=== PATIENT | female | born 1975 | race Caucasian/White ===

== ENCOUNTER → 2018-05-24 14:30 | Outpatient (CLI) | payer MEDICARE, MEDICAID, SELFPAY ==
--- NOTE | 2018-05-24 | DI.CT.S_ITS ---
PROCEDURE: CT CHEST WO CON INDICATIONS: FOLLOW UP NODULE TECHNIQUE: Noncontrast 2.0-2.5 mm thick sections acquired from the pulmonary apices to the posterior costophrenic angles. 7 mm thick coronal and sagittal MIP reformats were then acquired. A low radiation dose technique was utilized. COMPARISON: Merged With [facility], CT, PE STUDY (CTA CHEST), 12/21/2016, 23:42. FINDINGS: Image quality: Diagnostic, given the low radiation dose technique. Lungs and pleura: Nodularity in the left upper lobe on prior study has completely resolved. Round glass opacity in the left lower lobe has also resolved. Remaining are curvilinear radiodensities at the lung bases compatible with atelectasis/scarring. No pneumothorax or pleural effusion. Central airways are patent. Mediastinum: Heart size is normal. No pericardial effusion. No mediastinal adenopathy by size criteria. Thoracic aorta and central pulmonary arteries are normal in size. Esophagus is normal in caliber. No hiatal hernia. Bones and chest wall: No suspicious bony lesions. No vertebral body compression fractures. No axillary or supraclavicular adenopathy by size criteria. Thyroid gland appears normal as seen. Abdomen: Visualized upper abdomen solid organs and bowel loops appear normal in the absence of contrast. Cholecystectomy IMPRESSION: 1. Interval resolution of inflammatory nodularity left upper lobe. No further followup required. 2. Mild bibasilar pleural-parenchymal scarring/atelectasis. 3. Small calcified mediastinal lymph node indicating prior granulomatous disease. Dictated by: Dario Fisher M.D. on 05/24/2018 at 15:06 Approved by: Dario Fisher M.D. on 05/24/2018 at 15:22
== END ==
PROVIDERS: PCP Family Medicine; Visit Provider Physician Assistant
DX: R91.1 Solitary pulmonary nodule (principal); J98.11 Atelectasis
CPT/HCPCS: 71250

== ENCOUNTER 2021-01-16 15:34 | Emergency (ER) | payer MEDICARE, MEDICAID, SELFPAY ==
[2021-01-16] VITALS (9 sets, daily range): BP systolic 120–169; BP diastolic 81–110; PULSE 102–117; RESP 16–21; TEMP 36.6–36.8; O2SAT 92–96; BMI 65.2
--- NOTE | 2021-01-16 16:35 | DI.US.S_ITS ---
PROCEDURE: US EXTREMELY NONVASC UPPER RT INDICATIONS: pts picc line flushed earlier,now having extreme right arm p TECHNIQUE: Real-time scanning was performed of the right shoulder , with image documentation. COMPARISON: None. FINDINGS: No superficial or intramuscular fluid collections in the area of pain in the right upper arm. IMPRESSION: No abnormal fluid collections visible. Dictated by: Jenny Calle M.D. on 01/16/2021 at 17:00 Approved by: Jenny Calle M.D. on 01/16/2021 at 17:01
[2021-01-16] MEDS: OXYCODONE IR 5 MG TABLET 15 MG PO (17:12)
--- NOTE | 2021-01-16 19:09 | ED_ITS ---
HPI - Extremity Problem General Chief complaint: Extremity Problem,Nontraumatic Stated complaint: cleaned port, now pain up arm and neck Time Seen by Provider: 01/16/21 16:42 Source: patient Mode of arrival: Wheelchair History of Present Illness HPI Narrative: 45-year-old woman comes in with severe upper extremity pain related to her PICC line. She recently had his abdominal hernia repair that became infected with MRSA and now is on at least 7 more days of b.i.d. MRSA. Surgeries done at the [facility]. This morning noted the PICC line was not flushing well. It was infused and allowed to sit for 2 hours until it was working well and then the vancomycin was administered. Within an hour of completing the vancomycin she had increasing pain in the upper extremity that has continued to get worse. She is having difficulty extending her arm abducting her arm and severe pain that is not able to be controlled with pain medication she has available to her currently. Related Data Home Medications Medication Instructions Recorded Confirmed aripiprazole [Abilify] 20 mg PO QDAY #0 12/19/16 insulin aspart U-100 [Novolog 6 unit SQ TIDCC #0 12/19/16 U-100 Insulin aspart] insulin glargine [Lantus U-100 120 unit SQ HS #0 12/19/16 Insulin] lamotrigine [Lamictal] 200 mg PO QDAY #0 12/19/16 losartan [Cozaar] 25 mg PO QDAY #0 12/19/16 metformin [Glucophage] 1,000 mg PO BID #0 12/19/16 metoclopramide HCl 10 mg PO BID #0 12/19/16 tramadol 50 mg PO QIDP PRN #0 12/19/16 multivitamin [Multiple Vitamins] 1 tab PO QDAY #0 02/14/17 ascorbic acid (vitamin C) 500 mg PO QDAY #0 03/22/17 ferrous sulfate [Iron (ferrous 325 mg PO QDAY #0 03/22/17 sulfate)] furosemide 40 mg PO QDAY #0 03/22/17 gabapentin 2 cap PO BID #0 03/22/17 rivaroxaban [Xarelto] 20 mg PO HS #0 03/22/17 clotrimazole 1 gm TOPICAL BID #0 06/28/17 docusate sodium 100 mg PO QDAY #0 06/28/17 escitalopram oxalate [Lexapro] 10 mg PO QDAY #0 06/28/17 lisinopril 2.5 mg PO QDAY #0 06/28/17 lorazepam 0 mg PO Q6HP PRN #0 06/28/17 perphenazine 8 mg PO BID #0 06/28/17 ranitidine HCl 150 mg PO BID #0 06/28/17 rosuvastatin 40 mg PO HS #0 06/28/17 Previous Rx's Medication Instructions Recorded beclomethasone dipropionate [Qvar] 1 puff INH BID #1 inh 12/19/16 albuterol sulfate 3 ml INH Q6HP PRN #25 ea 12/22/16 ondansetron [Zofran ODT] 4 mg SUBLINGUAL Q6HP PRN #10 odt 06/28/17 rivaroxaban [Xarelto DVT-PE Treat See Rx Instructions .ROUTE 01/16/21 30d Start] .COMPLEX #51 ea Allergies Allergy/AdvReac Type Severity Reaction Status Date / Time bupropion [From WELLBUTRIN] Allergy Intermediate Verified 01/16/21 15:39 cephalexin [From KEFLEX] Allergy Intermediate RASH Verified 01/16/21 15:39 fluoxetine [From PROZAC] Allergy Intermediate Verified 01/16/21 15:39 lithium [LITHIUM] Allergy Intermediate Verified 01/16/21 15:39 Penicillins [PENICILLINS] Allergy Intermediate Verified 01/16/21 15:39 phenytoin [From DILANTIN] Allergy Intermediate Verified 01/16/21 15:39 haloperidol [From Haldol] Allergy Verified 01/16/21 15:39 lurasidone [From Latuda] Allergy Verified 01/16/21 15:39 codeine [CODEINE] AdvReac Intermediate HEART Verified 01/16/21 15:39 PALPITATIONS Review of Systems Review of Systems Narrative: Pertinent positive and negative findings as per HPI Remainder of review of systems is otherwise unremarkable for Constitutional: Fevers, chills, weakness ENT: No sore throat, ear pain CV: Chest pain, palpitations, Respiratory: Cough, wheeze, dyspnea GI: Nausea, vomiting, diarrhea, : Dysuria, hematuria, Patient History Medical History Diabetes Hypertension Morbid obesity Psychiatric diagnosis Surgical History H/O ventral hernia repair Social History Smoking Status: Former smoker Smoking Status: Former smoker alcohol intake frequency: holidays/special occasions only Substance Use Type: marijuana Exam Narrative Exam Narrative: General: Alert in severe distress with dramatic effective behavior secondary to pain associated with right upper extremity Respiratory: Able to speak in full sentences, no obvious respiratory distress Skin: No obvious rashes, warm and dry Neurologic: Grossly intact no obvious asymmetries or abnormalities Psych, appropriate insight and affect, cooperative Right upper extremity: Swelling from the [place] antecubital fossa up to the anterior portion of the chest. There appears to be increased fullness in the medial aspect of the upper arm and I am concerned that there may be infiltrate from the previous infusion. Body habitus does make full exam challenging. She has pain with full extension of the arm and pain with abduction. She is neurovascularly intact distally Initial Vital Signs Initial Vital Signs: Vital Signs Temperature 97.9 F 01/16/21 15:37 Pulse Rate 113 H 01/16/21 15:37 Respiratory Rate 16 01/16/21 15:37 Blood Pressure 169/110 H 01/16/21 15:37 Pulse Oximetry 96 01/16/21 15:37 Course Orders Ordered: ED Orders 01/16/21 16:35 US extremity nonvasc upper rt Stat Heparin Sodium (Porcine) (Heparin Flush (Cl/Picc/Mid-Line) 50 Unit/5 Ml Syringe) 50 unit IV NOW ONE Stop: 01/16/21 19:45 Discontinued Medications Oxycodone HCl (Oxycodone Ir 5 Mg Tablet) 15 mg PO NOW ONE Stop: 01/16/21 17:07 Last Admin: 01/16/21 17:12 Dose: 15 mg Documented by: AUPDIKE Rivaroxaban (Rivaroxaban 10 Mg Tablet) 15 mg PO NOW ONE Stop: 01/16/21 19:27 Vital Signs Vital signs: Vital Signs - 8 hr 01/16/21 15:37 01/16/21 16:35 01/16/21 17:31 Temperature 97.9 F 98.2 F Pulse Rate 113 H 102 H 105 H Respiratory Rate 16 20 21 Blood Pressure 169/110 H 146/95 H 144/84 H Pulse Oximetry 96 94 95 01/16/21 18:00 01/16/21 18:30 Temperature Pulse Rate 104 H 103 H Respiratory Rate 19 20 Blood Pressure 142/81 H 129/89 Pulse Oximetry [address] [facility] - Extremity (Nontraumatic) Imaging Data Ultrasound right upper extremity: Radiologist's Impression: FINDINGS: No superficial or intramuscular fluid collections in the area of pain in the right upper arm. IMPRESSION: No abnormal fluid collections visible. Dictated by: Jenny Calle M.D. on 01/16/2021 at 17:[address] [facility] Narrative Medical decision making narrative: PICC line services contacted to remove the PICC line and replace it. He notes that the original right-sided PICC line is a central line and she does have a completely occluded proximal axillary vein. She has had a history of blood clots and has been on Xarelto in the past. That PICC line is removed and a left upper extremity line is placed without difficulty so that she can have her vancomycin this evening. After having the line removed her pain is much better controlled. As she has been on Xarelto before will restart this and have her follow-up with her primary care physician within the next week. Continue with IV vancomycin as arranged and follow-up is arranged with [facility] as scheduled for next week. She is safe for home discharge Discharge Plan Departure Patient Disposition: Home Clinical Impression: MRSA (methicillin resistant Staphylococcus aureus) infection, S/P PICC central line placement DVT (deep venous thrombosis) Qualifiers: DVT location: upper extremity Affected thrombotic vein of extremity: axillary Chronicity: acute Laterality: right Qualified Code(s): I82.A11 - Acute embolism and thrombosis of right axillary vein Instructions: DI for Deep Vein Thrombosis Activity Restrictions/Additional Instructions: Thank you for coming in this evening As you are well aware, there was a problem with your PICC line on the right side. You do have a DVT in the right axillary vein. The right-sided PICC line has been removed. A new PICC line is placed in the left arm and you can use this this evening to continue vancomycin dosing To treat the DVT, you will need at least 3 months of Xarelto. Because this is a ?provoked? incident you may be able to only complete 3 months. However, because it is also a recurrent episode your primary care provider may recommend 6 months. Please schedule an appointment to follow-up with this next week. For the care of this current PICC line in to prevent additional clots, recommendation is to use 10 cc heparin flush after each vancomycin infusion. I have given you 2 doses, for tonight and tomorrow morning. Please call [facility] for additional medication Prescriptions: New Xarelto DVT-PE Treat 30d Start 15 mg (42)- 20 mg (9) tablets,dose pack See Rx Instructions .ROUTE .COMPLEX Qty: 51 RF: 0 No Action losartan [Cozaar] 25 MG tablet 25 mg PO QDAY Qty: 0 RF: 0 aripiprazole [Abilify] 20 MG tablet 20 mg PO QDAY Qty: 0 RF: 0 metformin [Glucophage] 500 MG tablet 1,000 mg PO BID Qty: 0 RF: 0 insulin glargine [Lantus U-100 Insulin] 100 UNIT/1 ML solution 120 unit SQ HS Qty: 0 RF: 0 insulin aspart U-100 [Novolog U-100 Insulin aspart] 100 UNIT/1 ML solution 6 unit SQ TIDCC Qty: 0 RF: 0 lamotrigine [Lamictal] 200 MG tablet 200 mg PO QDAY Qty: 0 RF: 0 metoclopramide HCl 10 MG tablet 10 mg PO BID Qty: 0 RF: 0 tramadol 50 MG tablet 50 mg PO QIDP PRNQty: 0 RF: 0 beclomethasone dipropionate [Qvar] 80 MCG/PUFF aerosol 1 puff INH BID Qty: 1 RF: 0 albuterol sulfate 2.5 MG/3 ML solution for nebulization 3 ml INH Q6HP PRNQty: 25 RF: 0 multivitamin [Multiple Vitamins] 1 EACH tablet 1 tab PO QDAY Qty: 0 RF: 0 furosemide 40 MG tablet 40 mg PO QDAY Qty: 0 RF: 0 gabapentin 100 MG capsule 2 cap PO BID Qty: 0 RF: 0 ascorbic acid (vitamin C) 500 MG tablet 500 mg PO QDAY Qty: 0 RF: 0 ferrous sulfate [Iron (ferrous sulfate)] 325 MG tablet 325 mg PO QDAY Qty: 0 RF: 0 rivaroxaban [Xarelto] 20 MG tablet 20 mg PO HS Qty: 0 RF: 0 clotrimazole 1 % cream 1 gm Topical BID Qty: 0 RF: 0 lisinopril 2.5 MG tablet 2.5 mg PO QDAY Qty: 0 RF: 0 lorazepam 1 MG tablet 0 mg PO Q6HP PRNQty: 0 RF: 0 ranitidine HCl 150 MG tablet 150 mg PO BID Qty: 0 RF: 0 docusate sodium 100 MG capsule 100 mg PO QDAY Qty: 0 RF: 0 rosuvastatin 40 MG tablet 40 mg PO HS Qty: 0 RF: 0 perphenazine 8 MG tablet 8 mg PO BID Qty: 0 RF: 0 escitalopram oxalate [Lexapro] 10 MG tablet 10 mg PO QDAY Qty: 0 RF: 0 ondansetron [Zofran ODT] 4 MG tablet,disintegrating 4 mg Sublingual Q6HP PRNQty: 10 RF: 0 Referrals: Med Thorne MD [Primary Care Provider] -
--- NOTE | 2021-01-16 19:14 | PC.NURSE ---
PICC team in with pt
[2021-01-16] MEDS: RIVAROXABAN 10 MG TABLET 15 MG PO (19:53)
== END 2021-01-16 20:06 | disposition home or self-care (01) ==
PROVIDERS: Emergency Provider Emergency Medicine; PCP Family Medicine
DX: I82.A11 Acute embolism and thrombosis of right axillary vein (principal); A49.02 Methicillin resistant Staphylococcus aureus infection, unspecified site
CPT/HCPCS: 76882; 96374; 99284; J1642

== ENCOUNTER → 2021-01-20 07:47 | Outpatient (CLI) | payer MEDICARE, MEDICAID, SELFPAY ==
--- NOTE | 2021-01-20 08:42 | DI.CT.S_ITS ---
PROCEDURE: CT ABDOMEN PELVIS W CON INDICATIONS: Cutaneous abscess of abdominal wall TECHNIQUE: After the administration of oral and intravenous contrast, 5 mm thick sections acquired from the diaphragms to the symphysis. 5 mm thick coronal and sagittal reformats were performed. For radiation dose reduction, the following was used: automated exposure control, adjustment of mA and/or kV according to patient size. COMPARISON: [facility], CT, PE STUDY (CTA CHEST), 12/21/2016, 23:42. [facility], CT, CT CHEST WO CON, 05/24/2018, 14:29. Outside [facility], RG, CT THORAX/ABDOMEN/PELVIS WITH CONTRAST, 01/07/2021, 10:32. FINDINGS: Image quality: Reduced by body habitus. ABDOMEN: Lung bases: Lung bases are clear except for mild linear scarring or atelectasis. Heart size is normal. Solid organs: Liver is normal in size and enhancement except for a stable appearing hypoenhancing structure at the right hepatic lobe anterior segment, gallbladder fossa axial level measuring 2.7 cm. This was previously present 01/07/21 without enlargement over this short period of time. The appearance is nonspecific and could represent an atypical hemangioma. Gallbladder has been previously resected. Biliary system is non-dilated. Pancreas enhances normally. Spleen is enlarged in craniocaudad dimension measuring up to 16.6 cm, and contains a rounded low-density structure possibly a splenic cyst measuring up to 2.4 cm. No adrenal nodules. Kidneys are normal in size and enhancement, without hydronephrosis. Peritoneum and bowel: Stomach, small bowel, and colon loops are normal in caliber and wall thickness. No free fluid or air. Nodes and vessels: No retroperitoneal or mesenteric adenopathy. Aorta and inferior vena cava are normal in caliber. Miscellaneous: No ventral hernias. PELVIS: Genitourinary: Bladder wall thickness is normal. Miscellaneous: No inguinal hernias or adenopathy. Within the soft tissues immediately superficial to the body wall fascia at the midline of the mid pelvis there is what appears to be an inflammatory process without drainable internal fluid but with several gas bubbles within best seen on series 2, image 67. Overlying soft tissue is edematous, focal infection within the soft tissues could explain this appearance as could postoperative change. Bones: No suspicious bony lesions. No vertebral body compression fractures. IMPRESSION: Quality of visualization is somewhat limited by body habitus, and when this is taken into account a drainable abscess is not identified. Note is made of a midline anterior inflammatory collection of several gas bubbles within the mid pelvic body wall, measuring up to 4.3 cm. Mild overlying edema thickens the cutaneous soft tissues in this area. Extension of gas bubbles separate from this area is not found within the soft tissues. 2.7 cm nonspecific hypodensity within the right hepatic lobe at its middle 3rd, seen also by the [facility] study performed 01/07/21. This was described as potentially a hemangioma at that time. Follow-up assessment with ultrasound would be helpful in further characterization of the structure. If it in fact represents a hepatic hemangioma it is consider atypical. Further assessment appears warranted, follow-up by ultrasound may become necessary. Splenomegaly, 16.6 cm craniocaudad, containing a rounded lower posterior splenic hypodensity likely a splenic cyst. This also could be evaluated by ultrasound. Dictated by: Phil Barragan M.D. on 01/20/2021 at 13:12 Approved by: Phil Barragan M.D. on 01/20/2021 at 13:25
== END ==
PROVIDERS: PCP Nurse Practitioner; Referring Provider Internal Medicine Infectious Disease; Visit Provider Internal Medicine Infectious Disease
DX: L02.211 Cutaneous abscess of abdominal wall (principal); R16.1 Splenomegaly, not elsewhere classified
CPT/HCPCS: 74177; Q9967

== ENCOUNTER 2021-01-22 14:06 | Emergency (ER) | payer MEDICARE, MEDICAID, SELFPAY ==
[2021-01-22 14:14] VITALS: BP 119/67; PULSE 98; RESP 22; TEMP 37.3; O2SAT 94
--- NOTE | 2021-01-22 14:20 | DI.US.S_ITS ---
PROCEDURE: US PERIPH VENOUS UP EXTREM LT INDICATIONS: recent hx dvt RUE r/t picc, now sx in lt TECHNIQUE: Real-time imaging, as well as color and pulse Doppler interrogation, was performed of the left upper extremity deep veins from the inferior neck to the antecubital fossa. COMPARISON: None. FINDINGS: There is a small amount of nonocclusive thrombus seen within a distal brachial vein, near the antecubital fossa. The internal jugular vein, visualized portions of the subclavian vein, and axillary are free of intraluminal thrombus. Where physically possible, the veins are normally compressible. Color and pulse Doppler demonstrate normal intraluminal flow, with expected phasicity and pulsatility. Additional scanning of the cephalic and basilic veins of the superficial system demonstrate normal compressibility, without thrombus. IMPRESSION: A small amount of nonocclusive deep venous thrombosis can be seen involving a left distal brachial vein, near the level of the antecubital fossa. Dictated by: Mike Wynn M.D. on 01/22/2021 at 15:34 Approved by: Mike Wynn M.D. on 01/22/2021 at 15:35
[2021-01-22 16:55] VITALS: BP 144/80
[2021-01-22 16:56] VITALS: O2SAT 94
--- NOTE | 2021-01-22 18:15 | ED_ITS ---
HPI - Recheck/Abnormal Lab/Rx General Chief Complaint: Recheck/Abnormal Lab/Rx Stated Complaint: states central line left arm, not working right Time Seen by Provider: 01/22/21 18:06 Source: patient Mode of arrival: Ambulatory Limitations: no limitations History of Present Illness HPI narrative: Patient is a 45-year-old female who was seen here in our department a couple days ago with an issue with the PICC line in her right upper extremity. This PICC line is in place because in infection that she sustained after an abdominal hernia surgery. She is being administered vancomycin. There in the last visit here she had problems with the right upper extremity PICC line. This was removed and she had a left upper extremity PICC line placed. It was noted during the prior note that she did have a proximal axillary DVT in the right. She has had blood clots in the past. She was started on Xarelto according to the note however the patient states that she is taking Lovenox. She return to the emergency department today because earlier in the day when the line was being clean by the home health nurse she states that it was ?dislodged. She states she attempted to infuse her vancomycin and it started to drain out her arm and she developed discomfort. Related Data Home Medications Medication Instructions Recorded Confirmed aripiprazole [Abilify] 20 mg PO QDAY #0 12/19/16 insulin aspart U-100 [Novolog 6 unit SQ TIDCC #0 12/19/16 U-100 Insulin aspart] insulin glargine [Lantus U-100 120 unit SQ HS #0 12/19/16 Insulin] lamotrigine [Lamictal] 200 mg PO QDAY #0 12/19/16 losartan [Cozaar] 25 mg PO QDAY #0 12/19/16 metformin [Glucophage] 1,000 mg PO BID #0 12/19/16 metoclopramide HCl 10 mg PO BID #0 12/19/16 tramadol 50 mg PO QIDP PRN #0 12/19/16 multivitamin [Multiple Vitamins] 1 tab PO QDAY #0 02/14/17 ascorbic acid (vitamin C) 500 mg PO QDAY #0 03/22/17 ferrous sulfate [Iron (ferrous 325 mg PO QDAY #0 03/22/17 sulfate)] furosemide 40 mg PO QDAY #0 03/22/17 gabapentin 2 cap PO BID #0 03/22/17 rivaroxaban [Xarelto] 20 mg PO HS #0 03/22/17 clotrimazole 1 gm TOPICAL BID #0 06/28/17 docusate sodium 100 mg PO QDAY #0 06/28/17 escitalopram oxalate [Lexapro] 10 mg PO QDAY #0 06/28/17 lisinopril 2.5 mg PO QDAY #0 06/28/17 lorazepam 0 mg PO Q6HP PRN #0 06/28/17 perphenazine 8 mg PO BID #0 06/28/17 ranitidine HCl 150 mg PO BID #0 06/28/17 rosuvastatin 40 mg PO HS #0 06/28/17 Previous Rx's Medication Instructions Recorded beclomethasone dipropionate [Qvar] 1 puff INH BID #1 inh 12/19/16 albuterol sulfate 3 ml INH Q6HP PRN #25 ea 12/22/16 ondansetron [Zofran ODT] 4 mg SUBLINGUAL Q6HP PRN #10 odt 06/28/17 rivaroxaban [Xarelto DVT-PE Treat See Rx Instructions .ROUTE 01/16/21 30d Start] .COMPLEX #51 ea Allergies Allergy/AdvReac Type Severity Reaction Status Date / Time bupropion [From WELLBUTRIN] Allergy Intermediate Verified 01/16/21 15:39 cephalexin [From KEFLEX] Allergy Intermediate RASH Verified 01/16/21 15:39 fluoxetine [From PROZAC] Allergy Intermediate Verified 01/16/21 15:39 lithium [LITHIUM] Allergy Intermediate Verified 01/16/21 15:39 Penicillins [PENICILLINS] Allergy Intermediate Verified 01/16/21 15:39 phenytoin [From DILANTIN] Allergy Intermediate Verified 01/16/21 15:39 haloperidol [From Haldol] Allergy Verified 01/16/21 15:39 lurasidone [From Latuda] Allergy Verified 01/16/21 15:39 codeine [CODEINE] AdvReac Intermediate HEART Verified 01/16/21 15:39 PALPITATIONS Review of Systems Constitutional Constitutional: Denies fever(s) and Denies headache(s) ENT Ears, Nose, Mouth, and Throat: Denies headache(s) Cardiovascular Cardiovascular: Denies chest pain and Denies dyspnea Respiratory Respiratory: Denies dyspnea Gastrointestinal Gastrointestinal: Denies abdominal pain Genitourinary Genitourinary: Denies dysuria Genitourinary: Denies dysuria Musculoskeletal Comments: Left arm pain Integumentary/Breasts Skin/Breast: Denies lesions and Denies rash Neurologic Neurologic: Denies behavioral changes and Denies headache(s) Psychiatric Psychiatric: Denies behavioral changes Hematologic/Lymphatic On Anticoagulants: Yes Allergic/Immunologic Allergic/Immunologic: Denies urticaria Patient History Medical History Diabetes Hypertension Morbid obesity Psychiatric diagnosis Surgical History H/O ventral hernia repair Social History Smoking Status: Former smoker Smoking Status: Former smoker alcohol intake frequency: holidays/special occasions only Substance Use Type: marijuana Exam Initial Vital Signs Initial Vital Signs: Vital Signs Temperature 99.1 F 01/22/21 14:14 Pulse Rate 98 H 01/22/21 14:14 Respiratory Rate 22 01/22/21 14:14 Blood Pressure 119/67 01/22/21 14:14 Pulse Oximetry 94 01/22/21 14:14 Const General: cooperative and comfortable Limitations: mental status not altered HENMT Head: normal to inspection Resp Effort & Inspection: normal respiratory effort Auscultation: clear to auscultation bilaterally Cardio Rate: regular rate Rhythm: regular rhythm Pulses: radial pulses present on the left Skin Lesions: no lesions Rashes: no rashes Neuro General: patient alert and patient awake Cognition: normal cognition Speech: speech normal Extrem General: capillary refill normal Psych Appearance: grossly normal and well kempt Course Orders Ordered: Discontinued Medications Acetaminophen (Acetaminophen 325 Mg Tablet) 650 mg PO NOW ONE Stop: 01/22/21 20:23 Last Admin: 01/22/21 20:26 Dose: 650 mg Documented by: DENISE Vital Signs Vital signs: Vital Signs - 8 hr 01/22/21 18:37 01/22/21 18:38 01/23/21 00:39 Pulse Rate 96 H 99 H 89 Respiratory Rate 20 Blood Pressure 140/87 139/91 H Pulse Oximetry 94 94 94 MDM - Recheck/Abnormal Lab/Rx Lab Data Labs: Point of Care Testing Glucose POC 144 Imaging Data US - DVT: Radiologist's Impression: [address] [id number] ReportSigned Patient: Madiha Castellon [facility]#: [id number]: 1975Acct:[id number]/Sex: 45 / FDate of Service: 01/22/21Loc: EDAccession Number: [id number] Procedure: US periph venous up extrem lt Ordering Provider: Meera Echevarria D.O. PROCEDURE: US PERIPH VENOUS UP EXTREM LT INDICATIONS: recent hx dvt RUE r/t picc, now sx in lt TECHNIQUE: Real-time imaging, as well as color and pulse Doppler interrogation, was performed of the left upper extremity deep veins from the inferior neck to the antecubital fossa. COMPARISON: None. FINDINGS: There is a small amount of nonocclusive thrombus seen within a distal brachial vein, near the antecubital fossa. The internal jugular vein, visualized portions of the subclavian vein, and axillary are free of intraluminal thrombus. Where physically possible, the veins are normally compressible. Color and pulse Doppler demonstrate normal intraluminal flow, with expected phasicity and pulsatility. Additional scanning of the cephalic and basilic veins of the superficial system demonstrate normal compressibility, without thrombus. IMPRESSION: A small amount of nonocclusive deep venous thrombosis can be seen involving a left distal brachial vein, near the level of the antecubital fossa. Dictated by: Mike Wynn M.D. on 01/22/2021 at 15:34 Approved by: Mike Wynn M.D. on 01/22/2021 at 15:[address] [facility] Narrative Medical decision making narrative: The PICC line site in her left upper extremity looks well. She is neurovascularly intact. According to the prior ED note from 01/16/2021 at this facility who was noted that she does have a proximal right axillary DVT. The ultrasound today of the left upper extremity shows a ?small amount of nonocclusive deep vein thrombosis involving the distal brachial vein. Patient states she is taking Lovenox. She has 2 more days of vancomycin remaining. I discussed the case with the transfer center at the [facility] where the patient is receiving her care. She does have a follow-up with her general surgeon tomorrow. I did not specifically talk with the general surgeon however through the transfer center I was informed that the surgeon would like us to remove the PICC line. Would like us to place a peripheral IV. Will have her continue her anticoagulation and have her keep her appointment with General surgery already scheduled for tomorrow. I did discuss this with her and she expressed understanding. She does have vancomycin at home that she can use. She was given return precautions and follow-up instructions. She expressed understanding and agreement. Discharge Plan Departure Patient Disposition: Home Clinical Impression: DVT (deep venous thrombosis) Activity Restrictions/Additional Instructions: You do need to protect the peripheral IV. You need to keep your appointment with your surgeon tomorrow. When you return home go ahead and distal your dose of vancomycin. Continue with the Lovenox. Contact your primary doctor for follow-up. Prescriptions: No Action losartan [Cozaar] 25 MG tablet 25 mg PO QDAY Qty: 0 RF: 0 aripiprazole [Abilify] 20 MG tablet 20 mg PO QDAY Qty: 0 RF: 0 metformin [Glucophage] 500 MG tablet 1,000 mg PO BID Qty: 0 RF: 0 insulin glargine [Lantus U-100 Insulin] 100 UNIT/1 ML solution 120 unit SQ HS Qty: 0 RF: 0 insulin aspart U-100 [Novolog U-100 Insulin aspart] 100 UNIT/1 ML solution 6 unit SQ TIDCC Qty: 0 RF: 0 lamotrigine [Lamictal] 200 MG tablet 200 mg PO QDAY Qty: 0 RF: 0 metoclopramide HCl 10 MG tablet 10 mg PO BID Qty: 0 RF: 0 tramadol 50 MG tablet 50 mg PO QIDP PRNQty: 0 RF: 0 beclomethasone dipropionate [Qvar] 80 MCG/PUFF aerosol 1 puff INH BID Qty: 1 RF: 0 albuterol sulfate 2.5 MG/3 ML solution for nebulization 3 ml INH Q6HP PRNQty: 25 RF: 0 multivitamin [Multiple Vitamins] 1 EACH tablet 1 tab PO QDAY Qty: 0 RF: 0 furosemide 40 MG tablet 40 mg PO QDAY Qty: 0 RF: 0 gabapentin 100 MG capsule 2 cap PO BID Qty: 0 RF: 0 ascorbic acid (vitamin C) 500 MG tablet 500 mg PO QDAY Qty: 0 RF: 0 ferrous sulfate [Iron (ferrous sulfate)] 325 MG tablet 325 mg PO QDAY Qty: 0 RF: 0 rivaroxaban [Xarelto] 20 MG tablet 20 mg PO HS Qty: 0 RF: 0 clotrimazole 1 % cream 1 gm Topical BID Qty: 0 RF: 0 lisinopril 2.5 MG tablet 2.5 mg PO QDAY Qty: 0 RF: 0 lorazepam 1 MG tablet 0 mg PO Q6HP PRNQty: 0 RF: 0 ranitidine HCl 150 MG tablet 150 mg PO BID Qty: 0 RF: 0 docusate sodium 100 MG capsule 100 mg PO QDAY Qty: 0 RF: 0 rosuvastatin 40 MG tablet 40 mg PO HS Qty: 0 RF: 0 perphenazine 8 MG tablet 8 mg PO BID Qty: 0 RF: 0 escitalopram oxalate [Lexapro] 10 MG tablet 10 mg PO QDAY Qty: 0 RF: 0 ondansetron [Zofran ODT] 4 MG tablet,disintegrating 4 mg Sublingual Q6HP PRNQty: 10 RF: 0 Xarelto DVT-PE Treat 30d Start 15 mg (42)- 20 mg (9) tablets,dose pack See Rx Instructions .ROUTE .COMPLEX Qty: 51 RF: 0 Referrals: Grace Dodd ARNP [Primary Care Provider] -
[2021-01-22 18:37] VITALS: PULSE 96; O2SAT 94
[2021-01-22 18:38] VITALS: BP 140/87; PULSE 99; O2SAT 94
[2021-01-22] MEDS: ACETAMINOPHEN 325 MG TABLET 650 MG PO (20:26)
[2021-01-23 00:39] VITALS: BP 139/91; PULSE 89; RESP 20; O2SAT 94
== END 2021-01-23 00:39 | disposition home or self-care (01) ==
PROVIDERS: Emergency Provider Emergency Medicine; PCP Nurse Practitioner
DX: I82.409 Acute embolism and thrombosis of unspecified deep veins of unspecified lower extremity (principal)
CPT/HCPCS: 82962; 93971; 99283

== ENCOUNTER → 2021-03-06 09:03 | Outpatient (CLI) | payer MEDICARE, MEDICAID, SELFPAY ==
--- NOTE | 2021-03-06 09:06 | DI.CT.S_ITS ---
PROCEDURE: CT ABDOMEN PELVIS W CON INDICATIONS: Cutaneous abscess of abdominal wall TECHNIQUE: After the administration of intravenous contrast, 5 mm thick sections acquired from the diaphragm to the symphysis. 5 mm coronal and sagittal reformats were acquired. For radiation dose reduction, the following was used: automated exposure control, adjustment of mA and/or kV according to patient size. COMPARISON: [facility], CT, CT ABDOMEN PELVIS W CON, 01/20/2021, 8:35. FINDINGS: Image quality: Excellent. ABDOMEN: Lung bases: Lung bases are clear. Heart size is normal. Solid organs: Liver is enlarged with steatosis. Unchanged low-attenuation focus within the the in the right lateral lobe on series 2, image 53, unchanged compared to prior exam, currently measuring 2.1 cm AP x 1.4 cm transverse.. Gallbladder has been removed. Biliary system is non dilated. Pancreas enhances normally. Spleen is enlarged. The attenuation focus within the midportion is unchanged, measuring 2.2 cm AP x 2.1 cm transverse. No adrenal nodules. Kidneys demonstrate normal size and enhancement, without hydronephrosis. Peritoneum and bowel: Bowel loops demonstrate normal wall thickness and caliber. No free fluid or air. Nodes and vessels: No retroperitoneal or mesenteric adenopathy by size criteria. Aorta and inferior vena cava are normal in size. Miscellaneous: Within the the subcutaneous fat of the anterior abdominal wall, there is a soft tissue density within the midline measuring approximately 2.8 cm AP x 4.6 cm transverse. This was present on prior exam it appears slightly less prominent. Previously noted, this focus demonstrated air which has near complete interval resolution. PELVIS: Genitourinary: Bladder wall thickness is normal. Miscellaneous: No inguinal hernias or adenopathy. Bones: No suspicious bony lesions. No vertebral body compression fractures. IMPRESSION: 1. Persistent although slightly less prominent midline focus of attenuation, likely related to inflammation of complex fluid. It is noted that previous foci of air demonstrate near complete interval resolution. Appearance is most suggestive of improving abscess/phlegmon. 2. Persistent, unchanged low-attenuation foci within the liver and spleen as previously described. Dictated by: Khalida Salmeron M.D. on 03/06/2021 at 12:32 Approved by: Khalida Salmeron M.D. on 03/06/2021 at 12:58
== END ==
PROVIDERS: PCP Nurse Practitioner; Referring Provider Internal Medicine Infectious Disease; Visit Provider Internal Medicine Infectious Disease
DX: L02.211 Cutaneous abscess of abdominal wall (principal)
CPT/HCPCS: 74177; Q9967

== ENCOUNTER → 2021-05-04 14:02 | Outpatient (CLI) | payer MEDICARE, MEDICAID, SELFPAY ==
--- NOTE | 2021-05-04 14:05 | DI.RAD.S_ITS ---
PROCEDURE: XR CERVICAL SPINE 4V OR 5V INDICATIONS: pain TECHNIQUE: 5 total views of the cervical spine were acquired, including bilateral oblique views. COMPARISON: [facility], MR, MR CERVICAL SPINE WITHOUT CONTRAST, 06/03/2020, 12:22. FINDINGS: Bones: No fractures or dislocations to the T1 level. Oblique images demonstrate no bony foraminal stenoses. The disc heights are well preserved. Soft tissues: No prevertebral soft tissue swelling. The visualized lung apices are unremarkable. IMPRESSION: Cervical spine plain films within normal limits. Dictated by: Mike Wynn M.D. on 05/04/2021 at 14:28 Approved by: Mike Wynn M.D. on 05/04/2021 at 14:29
== END ==
PROVIDERS: PCP Family Medicine; Referring Provider Physical Medicine & Rehabilitation; Visit Provider Physical Medicine & Rehabilitation
DX: M54.2 Cervicalgia (principal)
CPT/HCPCS: 72050

== ENCOUNTER 2022-04-20 11:49 | Day surgery (SDC) | payer MEDICARE, MEDICAID, SELFPAY ==
[2022-04-15 12:33] VITALS: BMI 58.3
[2022-04-20] VITALS (7 sets, daily range): BP systolic 103–124; BP diastolic 68–78; PULSE 79–90; RESP 12–20; TEMP 36.2–36.7; O2SAT 94–99; BMI 65.3
--- NOTE | 2022-04-20 | PATH_ITS ---
[facility] Accession Number: [id number] . 01 Material submitted: . endometrium - ENDOMETRIAL CURETTINGS . 01 Diagnosis: Endometrial Curettings: Portions of interval phase endometrium in a background of breakdown and shedding. Negative for glandular hyperplasia, cytologic atypia, or malignancy. MRV 04/22/2022 1501 Local . 01 Electronically signed: . Macrina Kat MD, Pathologist NPI- [id number] . 01 Gross description: . ENDOMETRIAL CURETTINGS: Received in formalin are multiple fragment(s) of rasmussen, soft tissue measuring 2.5 x 1.4 x 0.4 cm in aggregate submitted entirely in 1 cassette(s) /QBJ 04/21/2022 0705 Local . 01 Pathologist provided ICD-10: N93.9 . 01 CPT . 511340 Specimen Comment: A courtesy copy of this report has been sent to [phone] Performed at: 01 [facility] [address] [place] [address] [address], [place], [place] [id number] MD Gabe Mcmanus MD Phone: [phone]
--- NOTE | 2022-04-20 13:00 | PM.PREOP ---
Pre-operative Note COVID-19 COVID-19 status: Result pending Result date/Date tested (Pos, Neg/Pending): 04/20/22 Criteria for continued procedure: Non-surgical alternatives not available or appropriate per current SOC Interval Note History & Physical reviewed/Exam performed by Physician: No Changes to H&P: No
[2022-04-20] MEDS: LACTATED RINGERS 1,000 ML 100 ML IV (13:22)
[2022-04-20 13:33] LABS: COVID19 -Nasal RAPID Negative (Negative)
--- NOTE | 2022-04-20 14:08 | SUR.OPER ---
Lithotomy on padded OR bed, head on pillow, arms secured on padded arm boards at <90 degrees abduction. Legs secured in padded yellow fins stirrups. POSITION APPROVED BY ANESTHESIA AND SURGEON
--- NOTE | 2022-04-20 14:26 | PM.GYNOP.1 ---
Operative Date/Time/Diagnoses Date of procedure: 04/20/22 Time of procedure: 13:30 Pre-op diagnosis: abnormal uterine bleeding Post-op diagnosis: same Procedure & Clinicians Procedure: Procedures Operation Date: 04/20/22 13:15 Actual Procedure Side Surgeon p Diagnostic Hysteroscopy, D&C Maya Phillips MD Indications: abnormal uterine bleeding Surgeon: Maya Phillips Anesthesia Type: MAC +/- Operative Notes Findings: Normal vulva, vagina and cervix. polypoid tissue at fundus of uterus, firm lower uterine segment but no visible abnormalities on hysteroscopy. Specimen(s): endometrial curettings Estimated blood loss (mL): 5 Procedure in detail: After informed consent was obtained and a test was negative, the patient was taken to the operating room. She was prepped and draped in the usual sterile fashion, and a speculum inserted into the vagina. Apical prolapse was noted, and the cervix was easily visualized, grasped with a tenaculum and dilated to 7mm with serial hegar dilators. Minimal pressure was necessary. A diagnostic hysteroscope was inserted and the above findings noted. This was removed and a dilation and curettage performed with removal of a moderate amount of tissue. The hysteroscope was reintroduced, though visualization was suboptimal due to bleeding. The hysteroscope and tenaculum were removed with spontaneous hemostasis noted, and the speculum removed. THe patient was transferred to the PACU in stable condition. IVF: 600ccs LR Fluid deficit <500ccs NS Complications: none Post-operative Condition: stable Disposition: PACU Plan for aftercare: Routine postop care.
[2022-04-20] MEDS: HYDROCODONE/ACET 5/325 TABLET 1 TAB PO (14:49)
--- NOTE | 2022-04-20 16:14 | SUR.PHASEII ---
Late entry: pt ready to go, stated pain better, transporter available pt left unit in stable condition.
== END 2022-04-20 15:45 | disposition home or self-care (01) ==
PROVIDERS: PCP Family Medicine; Referring Provider Obstetrics & Gynecology; Visit Provider Obstetrics & Gynecology
PROC: 0UDB8ZZ Extraction of Endometrium, Via Natural or Artificial Opening Endoscopic (ICD-10-PCS; CPT 58558; principal; 2022-04-20 13:15)
DX: N93.9 Abnormal uterine and vaginal bleeding, unspecified (principal); Z20.822 Contact with and (suspected) exposure to COVID-19; E11.9 Type 2 diabetes mellitus without complications; Z79.4 Long term (current) use of insulin; I10 Essential (primary) hypertension; Z79.84 Long term (current) use of oral hypoglycemic drugs
CPT/HCPCS: 58558; 81025; 82962; 87635; C9803; J2250; J2704; J3010

== ENCOUNTER → 2023-10-18 14:30 | Outpatient (CLI) | payer MEDICARE, MEDICAID, SELFPAY ==
--- NOTE | 2023-10-18 15:33 | DI.RAD.S_ITS ---
PROCEDURE: XR KNEE RT 3V INDICATIONS: PAIN TECHNIQUE: 3 views of the knee were acquired. COMPARISON: None. FINDINGS: Bones: No fractures or dislocations. No suspicious bony lesions. Moderate to severe medial compartment degenerative change with similar appearance in the patellofemoral compartment. Prominent periarticular osteophytes are present. No erosions. Soft tissues: Mild joint effusion. No suspicious soft tissue calcifications. IMPRESSION: Prominent arthritic change in the medial and patellofemoral compartments. Dictated by: Khalida Salmeron M.D. on 10/18/2023 at 22:33 Approved by: Khalida Salmeron M.D. on 10/18/2023 at 22:34
== END ==
PROVIDERS: PCP Family Medicine; Referring Provider Physician Assistant; Visit Provider Physician Assistant
DX: M17.11 Unilateral primary osteoarthritis, right knee (principal)
CPT/HCPCS: 73562